=== PATIENT | female | born 1975 | race Caucasian/White ===

== ENCOUNTER 2023-11-02 12:49 | Outpatient (AMB) | payer BC, SELFPAY ==
--- NOTE | 2023-11-02 13:01 | MHC.PC.OV ---
Vital Signs 11/02/23 13:15 Height 5 ft 1 in Weight 126 lb BMI 23.8 BP 116/82 Blood Pressure Location Rt brachial Position Sitting Respiration 12 Pulse 74 Pulse Source Pulse Oximeter Temp 98.2 F Temp Source Oral Pulse Oximetry (%) 99 Oxygen Delivery Method Room Air Intake Visit Reasons: New patient Intake Note: New patient visit Grades 7 8 Tutor Required: No Is last menstrual period known: Yes Last menstrual period: 10/24/23 Patient : No Allergies amoxicillin Allergy (Severe, Verified 11/02/23 13:37) dyspnea ampicillin Allergy (Severe, Verified 11/02/23 13:37) dyspnea Penicillins Allergy (Severe, Verified 11/02/23 13:37) dyspnea azithromycin [From Zithromax] Allergy (Intermediate, Verified 11/02/23 13:37) dyspnea sulfa drugs Allergy (Mild, Uncoded 11/02/23 13:07) bumps on neck Medication List - Last Reconciled 11/02/23 by Bell Guaman PA-C iron 4.5 mg PO DAILY magnesium 250 mg PO DAILY omega-3 fatty acids 1,000 mg PO DAILY vitamin D3-vitamin K2 25 mcg (1,000 unit)-90 mcg tabs PO .every other day Tobacco use date assessed: 11/02/23 Dental Screening Dental Screen Date: 11/02/23 Did you have a dental visit in the last 12 months?: Yes Did you have a dental problem in the last 6 months where you did not have access to dental care?: Yes Was dental information given to patient?: Patient has dentist HPI New patient HPI Details Pt is a 47 y/o female who presents today to [facility] care (transferring from [facility] with me) and states that she made this appointment for left knee pain. She states that the left knee pain has since resolved. She thinks that she was injured herself while running long as the pain is mostly along the anterior aspect. She states that she took some time off and do some stretching in it is significantly better/resolved. No instability or swelling. She has not started running as long of distances but is able to do short runs without any difficulty. Does not want to do anything with this today. Her last physical was earlier this year. She had labs which were WNL. 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 [facility] Colonoscopy: 2022- wnl, due in 2032 Mammo: 12/09- UTD wants them done [facility] Family hx: mother had breast ca age of 50 [facility] Family History (Updated 11/02/23 @ 13:43 by Floridalma Vogt [facility] [address]) Mother Breast cancer Empyema Alcoholism Maternal Grandmother Lung cancer Father HTN (hypertension) Other Asthma Substance abuse Social History Housing: House Patient Tobacco Use Status: Former Tobacco user Years Smoked: smoked socially 10 years ago e-Cigarette/Vaping Use: Never Used Second Hand Smoke Exposure: No service: No Current occupational status: employed 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 1. Little interest or pleasure in doing things: not at all 2. Feeling down, depressed, or hopeless: not at all 3. Trouble falling or staying asleep, or sleeping too much: not at all 4. Feeling tired or having little energy: not at all 5. Poor appetite or overeating: not at all 6. Feeling bad about yourself - or that you are a failure or have let yourself or your family down: not at all 7. Trouble concentrating on things, such as reading the newspaper or watching television: not at all 8. Moving or speaking so slowly that other people could have noticed. Or the opposite - being so fidgety or restless that you have been moving around a lot more than usual: not at all 9. Thoughts that you would be better off or of hurting yourself in some way: not at all Total score: 0 Depression Screening Interpretation: Negative Depression Screening Done: Yes 73255 - PHQ-9 Billing: Yes Source: Developed by Drs. Sameer Terry, Ellie Fields, Fadi Molina and colleagues, with an educational marva from [employer]. Thrive Questionnaire Date Thrive assessed: 11/02/23 I am a: Patient What is your living situation today?: I have a steady place to live Within the past 12 months, did the food you bought not last and you didn't have the money to get more?: Never true Within the past 12 months, did you worry whether your food would run out before you got money to buy more?: Never true Do you have trouble paying for medicines?: No Do you have trouble getting transportation to medical appointments?: No Do you have trouble paying your heating and electricity bill?: No Do you have trouble taking care of your child, family member or friend?: No Do you have trouble with day-to-day activities such as bathing, preparing meals, shopping, managing finances, etc.?: No Are you currently unemployed and looking for a job?: No Are you interested in more education?: No Please select the resources that you would like help with: None Currently or been in a relationship where the following occur: no concerns reported THRIVE Score: 0 AUDIT C Alcohol Use Questionnaire (AUDIT-C) 1. How often do you have a drink containing alcohol?: Monthly or less 2. How many drinks containing alcohol do you have on a typical day when you are drinking?: 1 or 2 3. How often do you have six or more drinks on one occasion?: Never Total Score: 1 WILFREDO-7 AMB Questionnaire WILFREDO-7 Date WILFREDO - 7 assessed: 11/02/23 Feeling nervous, anxious, or on edge: 0 = Not at all Not being able to stop or control worryin = Not at all Worrying too much about different things: 0 = Not at all Trouble relaxin = Not at all Being so restless that it is hard to sit still: 0 = Not at all Becoming easily annoyed or irritable: 0 = Not at all Feeling afraid as if something awful might happen: 0 = Not at all Total WILFREDO-7 score (0-4 normal; 5-9 mild; 10-14 moderate; 15-21 severe): 0 Source: Developed by Drs. Sameer Terry, Ellie Fields, Fadi Molina and colleagues, with an educational marva from [employer]. WILFREDO-7 Assessment Billing WILFREDO-7 Assessment Tool: WILFREDO-7 Assessment 60428 Physical exam (Primary Care) Vital Signs: Last Vital Signs Temp 98.2 F 11/02/23 13:15 Pulse 74 11/02/23 13:15 Resp 12 11/02/23 13:15 BP 116/82 11/02/23 13:15 Pulse Ox 99 11/02/23 13:15 Oxygen Delivery Method Room Air 11/02/23 13:15 BMI result Body Mass Index 23.8 Tobacco/Smoking Status: Tobacco use Status Tobacco use date assessed 11/02/23 11/02/23 13:15 Patient Tobacco Use Status Former Tobacco user 11/02/23 13:15 e-Cigarette/Vaping Use Never Used 11/02/23 13:15 Depression Screening Interpretation: Negative Currently or been in a relationship where the following occur: no concerns reported Const Orientation/consciousness: patient oriented x3 HENMT Ears: hearing grossly normal bilaterally Neck Thyroid: Thyroid normal Lymphatic: no lymphadenopathy noted Resp Auscultation: clear to auscultation bilaterally Cardio Rate: regular rate Rhythm: regular rhythm Heart sounds: S1 normal heart sound present and S2 normal heart sound present GI Inspection: Yes normal to inspection Palpation (GI): Soft to palpation and Other GI palpation findings present (nontender, no cva tenderness) Auscultation: normoactive bowel sounds Rectal Exam - Female: deferred Skin General skin exam: no rashes or lesions noted Neuro General: patient oriented x3, gait normal and no focal motor deficits Assessment and Plan Assessment & Plan (1) Left knee pain: Code(s): M25.562 - Pain in left knee Qualifiers: Chronicity: acute Qualified Code(s): M25.562 - Pain in left knee Plan: resolved. follow up if needed (2) Encounter to establish care: Code(s): Z76.89 - Persons encountering health services in other specified circumstances Plan: reviewed mammo ordered as due next month advised to follow up in July 2024 for cpe or sooner prn labs reviewed from 2 months ago. Coding Level of Care Code Est Pt Level 3 (86944) Diagnoses Acute pain of left knee M25.562 Chronicity: acute Encounter to establish care Z76.89 Additional Codes WILFREDO-7 Assessment Billing - WILFREDO-7 Assessment Tool: WILFREDO-7 Assessment 06875 ([id number])
[2023-11-02 13:15] VITALS: BP 116/82; PULSE 74; RESP 12; TEMP 36.8; O2SAT 99; BMI 23.8
== END 2023-11-02 14:00 | disposition home or self-care (01) ==
PROVIDERS: PCP Physician Assistant; Visit Provider Physician Assistant
DX: M25.562 Pain in left knee (principal)
CPT/HCPCS: 99213

== ENCOUNTER 2024-12-15 07:45 | Outpatient (AMB) | payer BC, SELFPAY ==
--- OUTSIDE RECORDS SUMMARY | 2024-12-15 07:48 | XMS_ITS | Encounter Summary ---
Author Organization [facility] Address [address] [place] [address] Care Team Providers Care Industrial Engineering Director Name Role Phone Cooper Sawant MD Primary Care Provider Ramona Lacey MD Primary Care Provider Unavaila Kellen Mtz MD Primary Care Provider Fawad Diego MD Primary Care Provider Unava ilable Encounter Details Date Type Department Care Team (Late st Contact Info) Description 03/06/2008 Orders Only [facility] Internal Medicine [address] [place] [address] Cooper Sawant MD [address] [address] Social History Tobacco Use Types Packs/Day Years Used Date Smoking Tobacco: Every Day Comments:pt smokes approx. 6 -7 cigarettes per day Alcohol Use Standard Drinks/Week Comments Yes 0 (1 standard drink = 0.6 oz pur e alcohol) beer once in awhile Comments No Sex and Gender Information Value Date Recorded Sex Assigned at Not on file Legal Sex Female 10:03 PM EDT Gender Identity Not on file Sexual Orientation Not on file documented as of this encounter Plan of Treatment Not on file documented as of this encounter Visit Diagnoses Diagnosis Vaginitis and vulvovaginitis Vaginitis and vulvovaginitis, unspecified documented in this encounter Care Teams Industrial Engineering Director Relationship Specialty Start Date End Date Cooper Sawant MD PCP - General 02/02/06 02/11/11 Ramona Lacey MD PCP - General Family Medicine 02/12/11 11/24/11 Kellen Ram MD PCP - General Family Medicine 11/25/11 10/17/12 Fawad Diego MD PCP - General Family Medicine 10/18/12 documented as of this encounter
--- NOTE | 2024-12-15 08:02 | MHC.PC.OV ---
Vital Signs 12/15/24 08:06 Height 5 ft 1.25 in Weight 120 lb 6 oz BMI 22.6 BP 96/74 Blood Pressure Location Lt brachial Position Sitting Respiration 12 Pulse 79 Pulse Source Pulse Oximeter Pulse Oximetry (%) 100 Oxygen Delivery Method Room Air Intake Visit Reasons: CPE Allergies amoxicillin Allergy (Severe, Verified 11/02/23 13:37) dyspnea ampicillin Allergy (Severe, Verified 11/02/23 13:37) dyspnea Penicillins Allergy (Severe, Verified 11/02/23 13:37) dyspnea azithromycin [From Zithromax] Allergy (Intermediate, Verified 11/02/23 13:37) dyspnea gluten Allergy (Unknown, Verified 12/15/24 08:05) stomache bloating sulfa drugs Allergy (Mild, Uncoded 11/02/23 13:07) bumps on neck Tobacco use date assessed: 12/15/24 Dental Screening Dental Screen Date: 12/15/24 Did you have a dental visit in the last 12 months?: Yes Did you have a dental problem in the last 6 months where you did not have access to dental care?: No Was dental information given to patient?: Patient has dentist HPI CPE HPI Details Patient is a 48-year-old female who presents today for a physical exam. She is overall following a very healthy lifestyle. States that she limits/avoids dairy and gluten. Tries to avoid anything with GMO's. She does believe that she is perimenopause and requests hormones today. She is aware that this is outside my expertise and plans to follow with gynecology. Had recent labs at [facility] which were WNL (scanned into chart). 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 Colonoscopy: 2022- wnl, due in 2032 Mammo: 12/09- wants them done [facility] Family hx: mother had breast ca age of 50 [facility] Surgical History (Updated 12/15/24 @ 08:06 by Floridalma Vogt CMA) No pertinent past surgical history Family History Mother Breast cancer Empyema Alcoholism Maternal Grandmother Lung cancer Father HTN (hypertension) Other Asthma Substance abuse Social History (Updated 11/02/23 @ 13:40 by Floridalma Vogt CMA) Housing: House Alcohol intake: current Patient Tobacco Use Status: Former Tobacco user Years Smoked: smoked socially 10 years ago e-Cigarette/Vaping Use: Never Used Second Hand Smoke Exposure: No service: No Current occupational status: employed 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 1. Little interest or pleasure in doing things: not at all 2. Feeling down, depressed, or hopeless: not at all 3. Trouble falling or staying asleep, or sleeping too much: not at all 4. Feeling tired or having little energy: not at all 5. Poor appetite or overeating: not at all 6. Feeling bad about yourself - or that you are a failure or have let yourself or your family down: not at all 7. Trouble concentrating on things, such as reading the newspaper or watching television: not at all 8. Moving or speaking so slowly that other people could have noticed. Or the opposite - being so fidgety or restless that you have been moving around a lot more than usual: not at all 9. Thoughts that you would be better off or of hurting yourself in some way: not at all Total score: 0 Depression Screening Interpretation: Negative Depression Screening Done: Yes 90059 - PHQ-9 Billing: Yes Source: Developed by Drs. Sameer Terry, Ellie Fields, Fadi Molina and colleagues, with an educational marva from [employer]. Thrive Questionnaire Date Thrive assessed: 12/08/24 I am a: Patient What is your living situation today?: I have a steady place to live Within the past 12 months, did the food you bought not last and you didn't have the money to get more?: Never true Within the past 12 months, did you worry whether your food would run out before you got money to buy more?: Never true Do you have trouble paying for medicines?: No Do you have trouble getting transportation to medical appointments?: No Do you have trouble paying your heating and electricity bill?: No Do you have trouble taking care of your child, family member or friend?: No Do you have trouble with day-to-day activities such as bathing, preparing meals, shopping, managing finances, etc.?: No Are you currently unemployed and looking for a job?: No Are you interested in more education?: No Please select the resources that you would like help with: None Currently or been in a relationship where the following occur: No concerns reported THRIVE Score: 0 AUDIT C Alcohol Use Questionnaire (AUDIT-C) 1. How often do you have a drink containing alcohol?: Never 3. How often do you have six or more drinks on one occasion?: Never Total Score: 0 WILFREDO-7 AMB Questionnaire WILFREDO-7 Date WILFREDO - 7 assessed: 12/15/24 Feeling nervous, anxious, or on edge: 0 = Not at all Not being able to stop or control worryin = Not at all Worrying too much about different things: 0 = Not at all Trouble relaxin = Not at all Being so restless that it is hard to sit still: 0 = Not at all Becoming easily annoyed or irritable: 0 = Not at all Feeling afraid as if something awful might happen: 0 = Not at all Total WILFREDO-7 score (0-4 normal; 5-9 mild; 10-14 moderate; 15-21 severe): 0 Source: Developed by Drs. Sameer Terry, Ellie Fields, Fadi Molina and colleagues, with an educational marva from [employer]. WILFREDO-7 Assessment Billing WILFREDO-7 Assessment Tool: WILFREDO-7 Assessment 12060 Physical exam (Primary Care) Vital Signs: Last Vital Signs Pulse 79 12/15/24 08:06 Resp 12 12/15/24 08:06 BP 96/74 12/15/24 08:06 Pulse Ox 100 12/15/24 08:06 Oxygen Delivery Method Room Air 12/15/24 08:06 BMI result Body Mass Index 22.6 Tobacco/Smoking Status: Tobacco use Status Tobacco use date assessed 12/15/24 12/15/24 08:10 Patient Tobacco Use Status Former Tobacco user 12/15/24 08:10 e-Cigarette/Vaping Use Never Used 12/15/24 08:10 PHQ-9: PHQ-9 Score PHQ-9: Total score 0 12/15/24 08:10 Depression Screening Interpretation: Negative Thrive Assessment: Date of Thrive Assessment Date Thrive assessed 12/08/24 12/15/24 08:10 Currently or been in a relationship where the following occur: No concerns reported Const Orientation/consciousness: patient oriented x3 HENMT Ears: hearing grossly normal bilaterally and TM's normal bilaterally General nose exam: No nasal polyps present Face and sinus: Yes sinuses nontender Mouth: Normal oral and palatal mucosa present Eyes Pupils: Equal, round and reactive pupils present EOM: EOMs intact bilaterally Neck Neck: Yes full ROM and Yes no lymphadenopathy Thyroid: Thyroid normal Chest Chest palpation & inspection: normal inspection of the chest Resp Auscultation: clear to auscultation bilaterally Cardio Rate: regular rate Rhythm: regular rhythm Heart sounds: S1 normal heart sound present and S2 normal heart sound present Peripheral pulses: Peripheral pulses 2+ throughout GI Other: Soft, nontender Auscultation: normal bowel sounds Rectal Exam - Female: deferred General: Yes no CVA tenderness Back/Spine/Pelvis Other: Nontender Back: no CVA tenderness Skin General skin exam: no rashes or lesions noted Neuro General: patient oriented x3, gait normal, CN's II-XI intact bilaterally and deep tendon reflexes 2+ bilaterally Cranial nerves: Yes Equal, round and reactive pupils present Motor exam (neuro): 5/5 motor strength present throughout Sensory Exam: double simultaneous stimulation for sensation normal Coordination: [id number] test normal and Romberg test negative Extrem General: Yes normal to inspection and Yes full ROM Psych Affect: normal affect Attitude: cooperative Thought process: Normal thought process present Thought content: Normal thought content present Insight: Good insight present (Psych) Judgement: Good judgement present (Psych) Coding Level of Care Code Est Pt Prev Care 40-64y(29757) Diagnoses Routine general medical examination at a health care facility Z00.00 Perimenopausal N95.1 Additional Codes WILFREDO-7 Assessment Billing - WILFREDO-7 Assessment Tool: WILFREDO-7 Assessment 04372 ([id number]) PHQ-9 - 75708 - PHQ-9 Billing: Yes ([id number]) Assessment & Plan Assessment & Plan (1) Routine general medical examination at a health care facility: Code(s): Z00.00 - Encounter for general adult medical examination without abnormal findings Plan: reviewed mammo ordered Labs ordered. We will follow up pending test results (2) Perimenopausal: Code(s): N95.1 - Menopausal and female climacteric states Category: Medical Plan: Labs ordered Referral to wall mirror department supervisor Orders: Orders MM screening mammo BI Today Z12.31 - Encounter for screening mammogram for malignant neoplasm of breast Complete Blood Count Auto Diff Today E55.9 - Vitamin D deficiency, unspecified, N95.1 - Menopausal and female climacteric states, Z00.00 - Encounter for general adult medical examination without abnormal findings Comprehensive Vida. Panel Fast Today E55.9 - Vitamin D deficiency, unspecified, N95.1 - Menopausal and female climacteric states, Z00.00 - Encounter for general adult medical examination without abnormal findings TSH reflex Free T4 Today E55.9 - Vitamin D deficiency, unspecified, N95.1 - Menopausal and female climacteric states, Z00.00 - Encounter for general adult medical examination without abnormal findings Vitamin B12 and Folate Today E55.9 - Vitamin D deficiency, unspecified, N95.1 - Menopausal and female climacteric states, Z00.00 - Encounter for general adult medical examination without abnormal findings UA CC w/rflx Micro + Cult Today E55.9 - Vitamin D deficiency, unspecified, N95.1 - Menopausal and female climacteric states, Z00.00 - Encounter for general adult medical examination without abnormal findings, Z13.220 - Encounter for screening for lipoid disorders Lipid Panel Today E55.9 - Vitamin D deficiency, unspecified, N95.1 - Menopausal and female climacteric states, Z00.00 - Encounter for general adult medical examination without abnormal findings Vitamin D 25-OH Total Today E55.9 - Vitamin D deficiency, unspecified, N95.1 - Menopausal and female climacteric states, Z00.00 - Encounter for general adult medical examination without abnormal findings Lutenizing Hormone Today E55.9 - Vitamin D deficiency, unspecified, N95.1 - Menopausal and female climacteric states Magnesium Today E55.9 - Vitamin D deficiency, unspecified, N95.1 - Menopausal and female climacteric states, Z00.00 - Encounter for general adult medical examination without abnormal findings Estrad Free (Tot Ultra + Free) Today E55.9 - Vitamin D deficiency, unspecified, N95.1 - Menopausal and female climacteric states Follicle Stimulating Hormone Today E55.9 - Vitamin D deficiency, unspecified, N95.1 - Menopausal and female climacteric states Referrals IMCU SPECIALIST Referral Z01.419 - Encounter for gynecological examination (general) (routine) without abnormal findings
[2024-12-15 08:06] VITALS: BP 96/74; PULSE 79; RESP 12; O2SAT 100; BMI 22.6
== END 2024-12-15 09:00 | disposition home or self-care (01) ==
LOC: HO.HMCFM 07:46
PROVIDERS: PCP Physician Assistant; Visit Provider Physician Assistant
DX: Z00.00 Encounter for general adult medical examination without abnormal findings (principal); N95.1 Menopausal and female climacteric states

== ENCOUNTER → 2024-12-15 07:45 | Outpatient (BNVA) | payer BC, SELFPAY | PROVIDERS: PCP Physician Assistant; Visit Provider Physician Assistant | DX: Z00.00 Encounter for general adult medical examination without abnormal findings (principal); N95.1 Menopausal and female climacteric states | CPT/HCPCS: 96127 ==

== ENCOUNTER 2025-01-16 08:40 | Outpatient (REF) | payer BC, SELFPAY ==
--- OUTSIDE RECORDS SUMMARY | 2025-01-16 08:49 | XMS_ITS | Encounter Summary ---
Author Organization [facility] Address [address] [place] [address] Care Team Providers Care Corporate Trainer Name Role Phone Cooper Sawant MD Primary Care Provider Ramona Lacey MD Primary Care Provider Unavaila Kellen Mtz MD Primary Care Provider Fawad Diego MD Primary Care Provider Unava ilable Encounter Details Date Type Department Care Team (Late st Contact Info) Description 03/06/2008 Orders Only [facility] Internal Medicine [address] [place] [address] Cooper Sawant MD [address] [address] Social History Tobacco Use Types Packs/Day Years [...] unspecified documented in this encounter Care Teams Corporate Trainer Relationship Specialty Start Date End Date Cooper Sawant MD PCP - General 02/02/06 02/11/11 Ramona Lacey MD PCP - General Family Medicine 02/12/11 11/24/11 Kellen Ram MD PCP - General Family Medicine 11/25/11 10/17/12 Fawad Diego MD PCP - General Family Medicine 10/18/12 documented as of this encounter
== END 2025-01-16 08:41 | disposition home or self-care (01) ==
LOC: HO.MAMMO 08:40
PROVIDERS: PCP Physician Assistant; Visit Provider Physician Assistant
DX: Z12.31 Encounter for screening mammogram for malignant neoplasm of breast (principal)
CPT/HCPCS: 77063; 77067

== ENCOUNTER → 2025-01-16 08:45 | Outpatient (BNV) | payer BC, SELFPAY | PROVIDERS: PCP Physician Assistant; Visit Provider Internal Medicine | DX: Z12.31 Encounter for screening mammogram for malignant neoplasm of breast (principal) | CPT/HCPCS: 77063; 77067 ==